=== PATIENT | female | born 1960 | race Caucasian/White ===

== ENCOUNTER → 2020-05-03 | Outpatient (CLI) | payer BC | END | disposition home or self-care (01) | LOC: LABWHC1 13:34 | PROVIDERS: ATTEND Internal Medicine | DX: Z13.9 Encounter for screening, unspecified (principal) | CPT/HCPCS: U0003; C9803 ==

== ENCOUNTER → 2020-06-21 | Outpatient (CLI) | payer BC ==
--- NOTE | 2020-06-21 18:38 | CONS ---
CONSULTATION DATE OF SERVICE: 06/21/2020 This is a 60-year-old lady who has been evaluated in [facility] for possible obstructive sleep apnea-hypopnea syndrome. HISTORY OF PRESENT ILLNESS/SLEEP-WAKE EVALUATION: The patient sleeps by herself. Her usual sleep schedule on working days is from 11 p.m. to 6 or 6:30 a.m., on weekends from midnight until 7 a.m. No problems with falling asleep, although she has a TV in the bedroom. She sleeps in different positions. She snores. She wakes up from sleep 3 times with episodes of nocturia. During the day she may feel sleepy while watching TV, lying down for a rest in the afternoon. [place] Sleepiness Scale is 5. PAST MEDICAL HISTORY: Positive for several episodes of atrial fibrillation starting during sleep. Some of them resolved by themselves, some after treatment with medications. PAST SURGICAL HISTORY: Appendectomy, . MEDICATIONS: Metoprolol. SOCIAL HISTORY: Alcohol consumption occasional. FAMILY HISTORY: Positive for heart problems and stroke. REVIEW OF SYSTEMS: Multiple awakenings from sleep. PHYSICAL EXAMINATION: GENERAL: A pleasant lady without distress. VITAL SIGNS: BP 104/70, HR 86, RR 15, height 5 feet 3-1/2 inches, weight 226.6, body mass index 39.4, temperature 98.0. Oxygen saturation at room air 100%. HEENT: PERRLA, EOMI. Evaluation of oropharynx showed tongue protrudes midline. Low position of soft palate. Mallampati IV. NECK: Supple. No JVD. Thyroid is not palpable. Wide neck; 16 inches in circumference. LUNGS: Clear to percussion and to auscultation. Good air exchange. No wheezing or rhonchi. HEART: S1, S2 regular. No murmurs, gallops or rubs. ABDOMEN: Obese. EXTREMITIES: No clubbing or cyanosis. STATE DIRECTOR: Awake, alert, and oriented X3. Cranial nerves 2 to 7 intact. There is no fasciculation or atrophy. noted. No focal deficits observed. IMPRESSION: 1. Snoring, multiple awakenings from sleep with nocturia, extremely low position of soft palate, wide neck; obstructive sleep apnea-hypopnea syndrome. 2. History of atrial fibrillation. 3. Obesity. 4. Status post . 5. Status post appendectomy. PLAN: 1. Home sleep apnea test for evaluation of patient's breathing during sleep. 2. CPAP/BiPAP titration if sleep study confirms obstructive sleep apnea-hypopnea syndrome. 3. Preferable position during sleep on the side. 4. No driving if patient feels any sleepiness. 5. I will see patient for follow up visit to explain results of testing and following plan. Thank you very much for allowing me to participate in the management of your patient. Sincerely, Kike Horta MD, PhD, FAASM Diplomat of [place] [employer] [place] [employer] [facility] [place] MMODL / IJN: [id number] /
== END | disposition home or self-care (01) ==
LOC: SLEEP 14:49
PROVIDERS: ATTEND Internal Medicine
DX: G47.33 Obstructive sleep apnea (adult) (pediatric) (principal); E66.9 Obesity, unspecified; Z86.79 Personal history of other diseases of the circulatory system; Z90.49 Acquired absence of other specified parts of digestive tract
CPT/HCPCS: 99211

== ENCOUNTER 2020-07-11 08:51 | Day surgery (SDC) | payer BC ==
[2020-07-09 10:50] VITALS: BMI 35.4
[~2020-07-11 08:51] MED LIST: LACTATED RINGERS 1,000 ML IV SCH; ONDANSETRON 4 MG/2 ML VIAL IVP PRN
[2020-07-11 09:19] VITALS: TEMP 97.4
[2020-07-11] MEDS ORDERED: PROPOFOL 10 MG/ML 20 ML VIAL IV ONE (09:57)
--- NOTE | 2020-07-11 10:17 | P.PCN ---
Date of Procedure: 07/11/20 Procedure(s) Performed: BRIEF HISTORY: Patient is a 60-year-old pleasant white female scheduled for an elective colonoscopy as a part of screening for colorectal neoplasia. Her last colonoscopy was 10 years ago. PROCEDURE PERFORMED: Colonoscopy. PREOPERATIVE DIAGNOSIS: Screening for colon cancer. IV sedation per Anesthesia. PROCEDURE: After informed consent was obtained, the patient, was brought into the endoscopy unit. IV sedation was administered by Anesthesia under continuous monitoring. Digital rectal examination was normal. Initially the Olympus CF-160 flexible video colonoscope was then inserted in the rectum, gradually advanced into the cecum without any difficulty. Careful examination was performed as the scope was gradually being withdrawn. Ileocecal valve and the appendiceal orifice were visualized and appeared normal. Prep was excellent. Mucosa of the cecum, ascending colon, transverse colon, descending colon, sigmoid colon, and rectum appeared normal. Scattered sigmoid diverticulosis seen. Retroflexion was performed in the rectum and no lesions were seen. The patient tolerated the procedure well. IMPRESSION: Normal-appearing colon from rectum to cecum with no evidence of colorectal neoplasia. Scattered left sided diverticulosis. RECOMMENDATIONS: Findings of this examination were discussed with the patient as her family.. She was advised to have a repeat screening colonoscopy in 10 years
[2020-07-11 10:43] VITALS: BP 143/81; PULSE 64; RESP 18
== END 2020-07-11 10:59 | disposition home or self-care (01) ==
LOC: ORWHC2ENDO 08:51
PROVIDERS: ATTEND Internal Medicine Gastroenterology
DX: Z12.11 Encounter for screening for malignant neoplasm of colon (principal); K57.30 Diverticulosis of large intestine without perforation or abscess without bleeding; I10 Essential (primary) hypertension; G47.33 Obstructive sleep apnea (adult) (pediatric); F17.200 Nicotine dependence, unspecified, uncomplicated; E66.9 Obesity, unspecified; Z88.0 Allergy status to penicillin; Z88.2 Allergy status to sulfonamides; Z79.899 Other long term (current) drug therapy; Z99.89 Dependence on other enabling machines and devices; Z79.82 Long term (current) use of aspirin; Z98.890 Other specified postprocedural states; Z90.49 Acquired absence of other specified parts of digestive tract; Z68.39 Body mass index [BMI] 39.0-39.9, adult
CPT/HCPCS: J2704; G0121

== ENCOUNTER → 2020-07-16 | Outpatient (CLI) | payer BC | END | disposition home or self-care (01) | LOC: LABWHC1 10:48 | PROVIDERS: ATTEND Internal Medicine | DX: Z03.818 Encounter for observation for suspected exposure to other biological agents ruled out (principal) ==

== ENCOUNTER → 2021-01-09 | Outpatient (CLI) | payer BC ==
--- NOTE | 2021-01-09 11:57 | US ---
EXAMINATION TYPE: US abdomen complete DATE OF EXAM: 01/09/2021 COMPARISON: NONE CLINICAL HISTORY: R10.11 Right upper quadrant pain. Exam limits due to body habitus and bowel gas. EXAM MEASUREMENTS: Liver Length: 13.4 cm Gallbladder Wall: .2 cm CBD: .2 cm Spleen: 10.9 cm Right Kidney: 9.3 x 3.9 x 3.3 cm Left Kidney: 9.9 x 4.9 x 4.8 cm Pancreas: Obscured by bowel gas Liver: Increased attenuation Gallbladder: No stones seen Evidence for sonographic Herbert's sign: No CBD: wnl Spleen: wnl Right Kidney: No hydronephrosis or masses seen Left Kidney: No hydronephrosis or masses seen Upper IVC: wnl Abd Aorta: wnl IMPRESSION: 1. No acute ultrasound abnormality.
== END ==
LOC: RADUSWWP 10:17
PROVIDERS: ATTEND Internal Medicine
DX: R10.11 Right upper quadrant pain (principal)
CPT/HCPCS: 76700

== ENCOUNTER → 2021-07-05 | Outpatient (CLI) | payer BC ==
--- NOTE | 2021-07-08 10:32 | MM ---
Reason for exam: screening (asymptomatic). Last mammogram was performed 5 years and 11 months ago. History: Patient is postmenopausal and had first child at age 36. Physical Findings: A clinical breast exam by your physician is recommended on an annual basis and results should be correlated with mammographic findings. MG 3D Screening Mammo W/Cad Bilateral CC and MLO view(s) were taken. XCCL view(s) were taken of the left breast. Prior study comparison: August 07, 2015, bilateral MG screening mammo w CAD. February 05, 2010, bilateral digital screening mammogram. The breast tissue is heterogeneously dense. This may lower the sensitivity of mammography. Stable benign calcifications. There is no discrete abnormality. No significant changes when compared with prior studies. ASSESSMENT: Benign, BI-RAD 2 RECOMMENDATION: Routine screening mammogram of both breasts in 1 year.
== END | disposition home or self-care (01) ==
LOC: RADMAMWWP 15:28
PROVIDERS: ATTEND Internal Medicine
DX: Z12.31 Encounter for screening mammogram for malignant neoplasm of breast (principal)
CPT/HCPCS: 77063; 77067

== ENCOUNTER → 2021-08-05 | Outpatient (CLI) | payer BC ==
--- NOTE | 2021-08-05 15:37 | US ---
EXAMINATION TYPE: US thyroid st tissue head/neck DATE OF EXAM: 08/05/2021 COMPARISON: NONE CLINICAL HISTORY: E03.8 Hypothyroidism. hypothyroidism GLAND SIZE: Right Lobe: 4.5 x 1.9 x 2.0 cm Overall Parenchyma: heterogenous Left Lobe: 4.3 x 1.7 x 1.6 cm Overall Parenchyma: heterogeneous Isthmus Thickness: 0.4 cm NODULES RIGHT: # of nodules measured on right: 1 1. 0.9 X 0.8 x 1.2 cm, lower , solid, hyperechoic nodule, which is wider than tall, with smooth mar gins, without echogenic foci. Prior size: no prior LEFT: # of nodules measured on left: 0 ISTHMUS: # of nodules measured in the isthmus: 0 Bilateral neck scanned, no evidence of lymphadenopathy. IMPRESSION: Correlate for underlying thyroiditis. 2017 ACR TI-RADS LEVEL: TR 3, follow-up can be performed in one year *Highest TI-RADS level nodule reported
== END | disposition home or self-care (01) ==
LOC: RADUSWWP 14:21
PROVIDERS: ATTEND Internal Medicine
DX: E03.8 Other specified hypothyroidism (principal)
CPT/HCPCS: 76536

== ENCOUNTER → 2022-05-19 | Outpatient (CLI) | payer BC ==
--- NOTE | 2022-05-19 14:51 | CTL ---
EXAMINATION TYPE: CT Low Dose Lung DATE OF EXAM ORDERED: 05/19/2022 HISTORY: 62-year-old female, 30 pack-year history of smoking, quit 3 years ago. Lung cancer screening CT DLP: 115.[address] CTDI: 3.6 mGy Automated exposure control for dose reduction was used. SCREENING VISIT: Baseline COMPARISON: None TECHNIQUE: Low dose computed tomography scan was performed through the chest with coronal and sagitta l reconstructions. CT DIAGNOSTIC QUALITY: Satisfactory FINDINGS: Heart normal size without pericardial effusion. Some mitral annular calcifications are noted. Aorta normal caliber with bovine configuration to the aortic arch. Prominent but nonenlarged 8 mm upper right paratracheal lymph node. No thoracic lymphadenopathy by CT size criteria. 4 mm subpleural pulmonary nodule lateral right upper lobe, axial image 54. 3 mm subpleural pulmonary nodule lateral right upper to midlung, axial image 75 and 85. Mild diffuse bronchial wall thickening. Some strandy atelectasis or scarring in the lungs. No consoli dation or pleural effusion. Small hiatal hernia. Visualized upper abdomen shows no gross abnormality. Bones: Mild degenerative disc disease. More moderate anteriorly at C5-C6 with accentuated kyphosis. IMPRESSION: 1. LungRADS 2, benign; a few pulmonary nodules on the right measuring up to 4 mm on baseline screenin g. 2. Small hiatal hernia. CT LUNG RAD AND CT CHEST RECOMMENDATION: Lung-Rad 2 Benign Appearance or Behavior: Continue annual sc reening with LDCT in 12 months. S Modifier (other clinically significant findings): None
== END | disposition home or self-care (01) ==
LOC: RADCTMAIN 11:59
PROVIDERS: ATTEND Internal Medicine
DX: Z12.2 Encounter for screening for malignant neoplasm of respiratory organs (principal); Z87.891 Personal history of nicotine dependence
CPT/HCPCS: 71271

== ENCOUNTER → 2022-07-09 | Outpatient (CLI) | payer BC ==
--- NOTE | 2022-07-10 11:53 | BD ---
EXAMINATION TYPE: Axial Bone Density DATE OF EXAM: 07/09/2022 COMPARISON: NONE CLINICAL HISTORY: 62 year old Female. ICD-10 CODE: M89.9 DISORDER OF BONE, UNSPECIFIED Height: 65 Weight: 210 FRAX RISK QUESTIONS: Alcohol (3 or more units per day): no Family History (Parent hip fracture): no Glucocorticoids (More than 3mos): no (Ex: prednisone, prednisolone, methylprednisolone, dexamethasone, and hydrocortisone). History of Fracture in Adulthood: no Secondary Osteoporosis: 1. Type 1 Diabetes: no 2. Hyperthyroidism: no 3. Menopause before 45: no 4. Malnutrition: no 5. Chronic liver disease: no Rheumatoid Arthritis: no Current Tobacco Use: no RISK FACTORS HISTORY OF: Surgery to Spine/Hip(right/left)/Wrist (right/left): no Family History of Osteoporosis: no Active: no Diet low in dairy products/other sources of calcium: yes Postmenopausal woman: yes Lost more than 2 inches in height since high school: yes MEDICATIONS: Additional History: EXAM MEASUREMENTS: Bone mineral densitometry was performed using the [employer] System. Bone mineral density as measured about the Lumbar spine is: ----- L1-L4(G/cm2): 1.000 T Score Values are as follows: ----- L1: -0.7 ----- L2: -1.7 ----- L3: -1.6 ----- L4: -2.0 ----- L1-L4: -1.5 Bone mineral density has baseline Bone mineral density about the R hip (g/cm2): 0.733 Bone mineral density about the L hip (g/cm2): 0.880 T Score values are as follows: -----R Neck: -2.2 -----L Neck: -1.1 -----R Total: -1.5 -----L Total: -1.1 Bone mineral density baseline FRAX%s: The graph provided illustrates a 10.4% chance for a major osteoporotic fx and a 1.6% chance f or the hips probability for fx in 10 years time. IMPRESSION: Osteopenia (T Score between -2.5 and -1). There is slightly increased risk of fracture and the patient may be considered for treatment. Re-Screen 2-5 years. NOTE: T-SCORE=SD OF THE YOUNG ADULT MEAN.
--- NOTE | 2022-07-10 14:02 | MM ---
Reason for Exam: Screening (asymptomatic). Last screening mammogram was performed 12 month(s) ago. Patient History: Menarche at age 13. First Full-Term at age 36. Late child-bearing (after 30). Postmenopausal. Risk Values: Akiko 5 year model risk: 2.0%. NCI Lifetime model risk: 8.4%. Prior Study Comparison: 02/05/2010 Bilateral Screening Mammogram, [facility]. 08/07/2015 Bilateral Screening Mammogram, [facility]. 07/05/2021 Bilateral Screening Mammogram, [facility]. Tissue Density: The breast tissue is heterogeneously dense. This may lower the sensitivity of mammography. Findings: Analyzed By CAD. Stable tiny well-defined round mass in the left breast medial aspect. There is no suspicious group of microcalcifications or new suspicious mass in either breast. Overall Assessment: Benign, BI-RAD 2 Management: Screening Mammogram of both breasts in 1 year. A clinical breast exam by your physician is recommended on an annual basis and results should be correlated with mammographic findings. Electronically signed and approved by: Eran Tinsley M.D.
== END | disposition home or self-care (01) ==
LOC: RADMAMWWP 15:57
PROVIDERS: ATTEND Internal Medicine
DX: Z12.31 Encounter for screening mammogram for malignant neoplasm of breast (principal); M89.9 Disorder of bone, unspecified
CPT/HCPCS: 77063; 77067; 77080

== ENCOUNTER → 2023-10-29 | Outpatient (CLI) | payer BC ==
--- NOTE | 2023-10-30 19:11 | MM ---
Reason for Exam: Screening (asymptomatic). Last mammogram was performed 1 year(s) and 4 month(s) ago. Patient History: Menarche at age 13. First Full-Term at age 36. Late child-bearing (after 30). Postmenopausal. Patient has history of breast feeding. Risk Values: Akiko 5 year model risk: 2.0%. NCI Lifetime model risk: 8.1%. Prior Study Comparison: 08/07/2015 Bilateral Screening Mammogram, [facility]. 07/05/2021 Bilateral Screening Mammogram, [facility]. 07/09/2022 Bilateral MG 3D screening mammo w/cad, [facility]. Tissue Density: There are scattered fibroglandular densities. Findings: Analyzed By CAD. Pattern appears symmetrical and stable. There is a nodular density within the inferior medial left breast middle position. This has enlarged from comparison previous examination dated millimeters currently measuring 5 mm. 5 cm nipple. Additional workup with ultrasound is recommended. Right Breast: No suspicious groups of microcalcifications, spiculated or lobular masses, architectural distortion or other secondary signs of malignancy are mammographically apparent. Overall Assessment: Incomplete: need additional imaging evaluation, BI-RAD 0 Management: Diagnostic Breast Ultrasound of the left breast. A negative mammogram report should not preclude additional follow up of suspicious palpable abnormalities. Patient should continue monthly self breast exam. A clinical breast exam by your physician is recommended on an annual basis and results should be correlated with mammographic findings. Electronically signed and approved by: Mingo Zamora D.O. Radiologis
== END | disposition home or self-care (01) ==
LOC: RADMAMWWP 11:14
PROVIDERS: ATTEND Family Medicine
DX: Z12.31 Encounter for screening mammogram for malignant neoplasm of breast (principal); Z78.0 Asymptomatic menopausal state
CPT/HCPCS: 77063; 77067

== ENCOUNTER → 2023-11-05 | Outpatient (CLI) | payer BC ==
--- NOTE | 2023-11-05 15:18 | USB ---
Reason for Exam: Additional evaluation requested from abnormal screening. Patient History: Menarche at age 13. First Full-Term at age 36. Late child-bearing (after 30). Postmenopausal. Patient has history of breast feeding. Risk Values: Akiko 5 year model risk: 2.0%. NCI Lifetime model risk: 8.1%. Technique: Method: Targeted. Prior Study Comparison: 07/05/2021 Bilateral Screening Mammogram, [facility]. 07/09/2022 Bilateral MG 3D screening mammo w/cad, [facility]. 10/29/2023 Bilateral MG 3D screening mammo w/cad, [facility]. Findings: The lower inner quadrant of the left breast, the axilla of the left breast and the retroareolar of the left breast were scanned. There is a 0.5 x 0.4 x 0.4 cm rounded hypoechoic area with indistinct margins 9:00 position 5 cm from the nipple. This could correlate with the mammographic finding and is considered suspicious. Ultrasound-guided core biopsy is recommended. Overall Assessment: Suspicious, BI-RAD 4 Management: Ultrasound Core Biopsy of the left breast. A clinical breast exam by your physician is recommended on an annual basis and results should be correlated with mammographic findings. This exam should not preclude additional follow-up of suspicious palpable abnormalities. Results were given to the patient verbally at the time of exam. Electronically signed and approved by: Mingo Zamora D.O. Radiologis
== END | disposition home or self-care (01) ==
LOC: RADUSWWP 14:38
PROVIDERS: ATTEND Family Medicine
DX: R92.8 Other abnormal and inconclusive findings on diagnostic imaging of breast (principal); Z78.0 Asymptomatic menopausal state

== ENCOUNTER → 2023-11-25 | Day surgery (SDC) | payer BC ==
--- NOTE | 2023-12-01 07:39 | MM ---
Reason for Exam: Post Procedure Mammogram. Last screening mammogram was performed less than 1 month ago. Patient History: Menarche at age 13. First Full-Term at age 36. Late child-bearing (after 30). Postmenopausal. Patient has history of breast feeding. Risk Values: Akiko 5 year model risk: 2.0%. NCI Lifetime model risk: 8.1%. Prior Study Comparison: 07/05/2021 Bilateral Screening Mammogram, [facility]. 07/09/2022 Bilateral MG 3D screening mammo w/cad, [facility]. 10/29/2023 Bilateral MG 3D screening mammo w/cad, [facility]. 11/05/2023 Left US breast workup limited , [facility]. Tissue Density: Left: There are scattered fibroglandular densities. Pathology Description: Location: 9 o'clock. Needle Type: Celero Cores: 3 Gauge: 12 The procedure of ultrasound guided core biopsy was explained to the patient. Benefits, alternatives, and risks were discussed. An informed consent was then obtained. The patient was placed in supine positioning for imaging and for the procedure. The overlying skin was prepped and draped in usual sterile fashion. Lidocaine buffered with bicarbonate was used as anesthetic into the skin and subcutaneous tissue up to area of concern in the left 9:00 breast. A marielena was made with surgical scalpel. Under ultrasound guidance, a 12-gauge vacuum assisted biopsy gun device was used to obtain 3 core samples. Following this, a biopsy clip was left in lesion. The patient tolerated the procedure well without any immediate complication. The patient was kept in the radiology department for short stay after the procedure and then discharged home in stable condition. Postprocedure mammogram: The patient was transferred to mammography for physician ordered post procedure mammogram for clip placement verification. Impression: Successful, uncomplicated ultrasound guided core biopsy of area of concern in the left 9:00 breast, full pathology results to follow. Pathology Results: Result: Malignant, Invasive ductal carcinoma. LEFT BREAST, NINE O'CLOCK, ULTRASOUND GUIDED NEEDLE CORE BIOPSY: Invasive ductal carcinoma, Grade 1 (see Surgical Pathology Cancer Case Summary and Comment). Overall Assessment: Malignant Assessment: MG diagnostic mammo LT wo CAD. - Left: Known biopsy proven malignancy, BI-RAD 6. Management: Surgical Consultation of the left breast. Electronically signed and approved by: Cristofer Johnson M.D. Radiologis
== END ==
LOC: RADUSWWP 10:14
PROVIDERS: ATTEND Surgery
DX: C50.912 Malignant neoplasm of unspecified site of left female breast (principal); Z17.0 Estrogen receptor positive status [ER+]
CPT/HCPCS: 88305; 88342; 88341; 77065; 19083; A4648

== ENCOUNTER → 2023-12-04 | Outpatient (CLI) | payer BC ==
--- NOTE | 2023-12-04 10:59 | P.GSHP ---
History of Present Illness H&P Date: 12/04/23 Chief Complaint: left breast stage I invasive ductal cancer 11-25-23 Marilynn is a 63 year old female seen in consultation for Dr. Pina regarding a biopsy proven left breast invasive ductal cancer. She had a bilateral mammogram on 10-29-23 showing an inferior medial left breast lesion. It measured 5 mm. Right breast no lesions of concern, ultrasound recommended. Ultrasound 11-05-23 0.5 by 0.4 cm lesion noted. Biopsy on (+) for invasive ductal cancer, ER+< MN+Her2-G1. Insulin was The patient did not feel any new lumps masses or nodules of concern in her breast prior to the mammogram. She has not had any surgery on her breast. She is not complaining of any trauma or infection in her breast. She is not complaining of any nipple discharge or skin changes. She does get routine mammograms. Her last mammogram prior to this was a year ago. Caffeine: 44 oz diet pepsi/day nicotine: none; stopped 8 years ago used to smoke 1 PPD for about 30 years chocolate: occasional BCP: used for 20 years Family History: paternal grandmother: gallbladder cancer Hormonal History: menarche: 12 , age at first : 36, breast fed: yes menopause: 44 Surgical History: appendectomy Medical History: hypothyroid Social History: nicotine: as above alcohol: several times/week drugs: none - Constitutional Constitutional: Denies chills, Denies fever - EENT Eyes: denies blurred vision, denies pain Ears: deny: decreased hearing, tinnitus Ears, nose, mouth and throat: Denies headache, Denies sore throat - Breasts Breasts: bilateral: as per HPI - Cardiovascular Cardiovascular: Denies chest pain, Denies shortness of breath - Respiratory Respiratory: Denies cough, Denies 7 - Gastrointestinal Gastrointestinal: Denies abdominal pain, Denies diarrhea, Denies nausea, Denies vomiting - Genitourinary (Female) Genitourinary: Denies dysuria, Denies hematuria - Menstruation Menstruation: Reports postmenopausal - Musculoskeletal Musculoskeletal: Reports myalgias - Integumentary Integumentary: Denies pruritus, Denies rash - Neurological Neurological: Denies numbness, Denies weakness - Psychiatric Psychiatric: Reports anxiety - Endocrine Endocrine: Reports as per HPI - Hematologic/Lymphatic Comment: baby aspirin - Allergic/Immunologic Allergic/Immunologic: Reports as per HPI Past Medical History Past Medical History: No Reported History History of Any Multi-Drug Resistant Organisms: None Reported Past Surgical History: Appendectomy, Section Past Anesthesia/Blood Transfusion Reactions: No Reported Reaction Past Psychological History: No Psychological Hx Reported - Past Family History Father Family Medical History: No Reported History Mother Family Medical History: Coronary Artery Disease (CAD), Pulmonary Embolus Brother(s) Family Medical History: AFIB Medications and Allergies Home Medications Medication Instructions Recorded Confirmed Type Aspirin 81 mg PO DAILY #90 chewable 08/10/16 11/09/23 Rx Cholecalciferol [Vitamin D3 (25 25 mcg PO DAILY 11/09/23 11/09/23 History Mcg = 1000 Iu)] Levothyroxine Sodium [Synthroid] 100 mcg PO DAILY 11/09/23 11/09/23 History Allergies Allergy/AdvReac Type Severity Reaction Status Date / Time Penicillins Allergy Rash/Hives Verified 11/09/23 08:44 Sulfa (Sulfonamide AdvReac Rash/Hives Verified 11/09/23 08:44 Antibiotics) Surgical - Exam - General no distress - Eyes normal ocular movement - Neck trachea midline - Respiratory normal respiratory effort, clear to auscultation - Cardiovascular Rhythm: regular Heart Sounds: normal: S1, S2 - Abdomen Abdomen: soft, non tender, no guarding, no rigid, no rebound - Integumentary normal turgor - Neurologic no disoriented, no combative - Musculoskeletal normal gait - Psychiatric oriented to time, oriented to person, oriented to place, speech is normal, memory intact Breast Exam: BRA: 38B Inspection: Bilateral grade 3 ptosis, ecchymosis at biopsy site left breast Palpation: Right breast: Multi positional exam fibrocystic changes, no dominant masses or nodules of concern Right axilla: No adenopathy of concern Left breast: Multi positional exam fibrocystic changes, no dominant masses or nodules of concern, ecchymosis at biopsy site, no infection and no hematoma Left axilla: No adenopathy of concern Results Mammogram and ultrasound personally reviewed with Dr. Arellano Assessment and Plan Assessment: Impression: Biopsy-proven left breast invasive ductal carcinoma stage Ia Plan: Presentation of case at tumor board CC: Dr. Pina
[2023-12-04 11:05] VITALS: BP 111/74; PULSE 69; RESP 16; TEMP 97.9
== END ==
LOC: WWCWWP 10:04
PROVIDERS: ATTEND Surgery
DX: C50.912 Malignant neoplasm of unspecified site of left female breast (principal); E03.9 Hypothyroidism, unspecified; Z17.0 Estrogen receptor positive status [ER+]; Z87.891 Personal history of nicotine dependence; Z79.890 Hormone replacement therapy; Z88.0 Allergy status to penicillin; Z88.2 Allergy status to sulfonamides; Z79.82 Long term (current) use of aspirin

== ENCOUNTER → 2023-12-18 | Outpatient (CLI) | payer BC ==
--- NOTE | 2023-12-18 12:29 | CTL ---
EXAMINATION TYPE: CT Low Dose Lung DATE OF EXAM ORDERED: 12/18/2023 HISTORY. Lung cancer screening CT DLP: 74.[address] CTDI: 2.45 mGy Automated exposure control for dose reduction was used. COMPARISON: 05/19/2022 TECHNIQUE: Low dose computed tomography scan was performed through the chest at 1 mm thick sections a nd reconstructed images in multiple planes at 1 mm and [address] DIAGNOSTIC QUALITY: Satisfactory FINDINGS: There are stable tiny sub-4 mm nodules bilaterally. No new or suspicious lung nodule is seen. There is no abnormal airspace/consolidative density or abnormal interstitial density. There is no pleural effusion, pleural thickening or pneumothorax. Great vessels chest normal is no mediastinal, hilar or axillary adenopathy. There is case of the upper abdomen reveals no gross abnormality. No focal osseous lesions are seen. IMPRESSION: 1. No cystic significant interval change compared to previous. 2 BI-RADS Category 2 benign findings. Continue routine screening U. Br[facility]. 3. No acute cardiopulmonary disease. 4. No evidence of chronic lung disease.
== END | disposition home or self-care (01) ==
LOC: RADCTMAIN 11:02
PROVIDERS: ATTEND Family Medicine
DX: Z12.2 Encounter for screening for malignant neoplasm of respiratory organs (principal); Z87.891 Personal history of nicotine dependence
CPT/HCPCS: 71271

== ENCOUNTER → 2024-09-15 | Outpatient (CLI) | payer MEDICARE, BC ==
--- NOTE | 2024-09-15 20:58 | BD ---
EXAMINATION TYPE: Axial Bone Density DATE OF EXAM: 09/15/2024 CLINICAL HISTORY: 64 years old Female. ICD-10 CODE: C50.212 BREAST CA , Additional History: Height: 63.25 Weight: 236 FRAX RISK QUESTIONS: Secondary Osteoporosis: RISK FACTORS HISTORY OF: MEDICATIONS: Thyroid Medications: Which medication: Levothyroxine How Long: about 5 years Osteoporosis Medications: Which medication: Alendronate How Lon months EXAM MEASUREMENTS: Bone mineral densitometry was performed using the [employer] System. Bone mineral density as measured about the Lumbar spine is: ----- L1-L4(G/cm2): 0.989 T Score Values are as follows: ----- L1: -1.5 ----- L2: -1.7 ----- L3: -1.5 ----- L4: -1.8 ----- L1-L4: -1.6 Z Score Values are as follows: ----- L1: -1.1 ----- L2: -1.3 ----- L3: -1.0 ----- L4: -1.4 ----- L1-L4: -1.2 Bone mineral density has: Decreased -1.1% since study of: 07-09-22 Bone mineral density about the R hip (g/cm2): 0.804 Bone mineral density about the L hip (g/cm2): 0.863 T Score values are as follows: -----R Neck: -2.2 -----L Neck: -1.0 -----R Total: -1.6 -----L Total: -1.1 Z Score values are as follows: -----R Neck: -1.4 -----L Neck: -0.3 -----R Total: -1.2 -----L Total: -0.8 Bone mineral density has: Decreased -1.0% since study of: 07-09-22 FRAX%s: The graph provided illustrates a 10.1% chance for a major osteoporotic fx and a 1.6% chance f or the hips probability for fx in 10 years time. IMPRESSION: Osteopenia (T Score between -2.5 and -1). There is slightly increased risk of fracture and the patient may be considered for treatment. Re-Screen 2-5 years. NOTE: T-SCORE=SD OF THE YOUNG ADULT MEAN. [facility], , 09/15/2024 8:56 PM
== END | disposition home or self-care (01) ==
LOC: RADBDWWP 14:28
PROVIDERS: ATTEND Internal Medicine
DX: C50.212 Malignant neoplasm of upper-inner quadrant of left female breast (principal); E06.9 Thyroiditis, unspecified; I48.91 Unspecified atrial fibrillation; M85.89 Other specified disorders of bone density and structure, multiple sites
CPT/HCPCS: 77080

== ENCOUNTER → 2024-10-06 | Outpatient (CLI) | payer MEDICARE, BC ==
--- NOTE | 2024-10-07 08:28 | MM ---
Reason for Exam: Follow-up at short interval from prior study. Last screening mammogram was performed 11 month(s) ago. Patient History: Menarche at age 13. First Full-Term at age 36. Late child-bearing (after 30). Postmenopausal. Patient has history of breast feeding. Breast cancer, left, age 63. 11/25/2023, Malignant US biopsy breast VAD LT on the left side. Prior Study Comparison: 07/05/2021 Bilateral Screening Mammogram, [facility]. 07/09/2022 Bilateral MG 3D screening mammo w/cad, [facility]. 10/29/2023 Bilateral MG 3D screening mammo w/cad, [facility]. 11/05/2023 Left US breast workup limited LT, [facility]. 11/25/2023 Left MG diagnostic mammo LT wo CAD., [facility]. Tissue Density: The breasts are heterogeneously dense, which may obscure small masses. Findings: Analyzed By CAD. A scar marker is utilized on the left breast. The pattern is symmetrical. There is a wire loop with twist fixation anterior medial left breast. No suspicious changes. No suspicious groups of microcalcifications, spiculated or lobular masses, architectural distortion or other secondary signs of malignancy are mammographically apparent. Overall Assessment: Benign, BI-RAD 2 Management: Screening Mammogram of both breasts in 1 year. A negative mammogram report should not preclude additional follow up of suspicious palpable abnormalities. Patient should continue monthly self breast exam. A clinical breast exam by your physician is recommended on an annual basis and results should be correlated with mammographic findings. Note on Akiko scores and lifetime risk: 1. A Akiko score greater than 3% is considered moderate risk. If this is the case, consider specialist referral to assess eligibility for a risk reducing agent. 2. If overall lifetime risk for the development of breast cancer is 20% or higher, the patient may qualify for future screening with alternating mammogram and breast MRI. [facility], , 10/07/2024 8:24 AM. Electronically signed and approved by: Mingo Zamora D.O. Radiologis
== END | disposition home or self-care (01) ==
LOC: RADMAMWWP 13:47
PROVIDERS: ATTEND Surgery
DX: Z85.3 Personal history of malignant neoplasm of breast (principal); Z78.0 Asymptomatic menopausal state; R92.333 Mammographic heterogeneous density, bilateral breasts
CPT/HCPCS: 77066; G0279; 77062

== ENCOUNTER → 2024-11-14 | Outpatient (CLI) | payer MEDICARE, BC ==
[2024-11-14 20:09] LABS: HCT 42.4 % (37.2-46.3); MCH 29.9 pg (27.0-32.0); MCV 90.6 FL (80.0-97.0); RBC 4.68 X 10*6/uL (4.10-5.20); WBC 6.98 X 10*3/uL (4.50-10.00)
[2024-11-14 20:10] LABS: Mean Platelet Volume 10.7 FL (9.5-12.2); NRBC Per 100 WBC 0 X 10*3/uL (0.00-0.01); Platelet Count 199 X 10*3/uL (140-440); RDW 12.4 % (11.5-14.5)
[2024-11-14 20:32] LABS: BUN/Creat Ratio 16.82 Ratio (12.00-20.00); Blood Urea Nitrogen 18.5 mg/dL (9.0-27.0); Calcium 9.4 mg/dL (8.7-10.3); Carbon Dioxide 23.2 mmol/L (21.6-31.8); Chloride 103 mmol/L (96-109); Glucose 90 mg/dL (70-110); Potassium 4.2 mmol/L (3.5-5.5); Sodium 139 mmol/L (135-145)
[2024-11-14 20:43] LABS: NT-Pro-B-Type Natriuretic Pept 107 pg/mL (0-125)
== END | disposition home or self-care (01) ==
LOC: LABWHC1 15:31
PROVIDERS: ATTEND Internal Medicine Cardiovascular Disease
DX: R06.02 Shortness of breath (principal)
CPT/HCPCS: 36415; 80048; 83880; 84443; 85027

== ENCOUNTER → 2025-01-31 | Outpatient (CLI) | payer MEDICARE, BC ==
--- NOTE | 2025-01-31 11:24 | CTL ---
EXAMINATION TYPE: CT Low Dose Lung DATE OF EXAM ORDERED: 01/31/2025 COMPARISON: Prior CT December 18, 2023 and older studies CLINICAL INDICATION: Female, 64 years old with history of Z12.2 SCREENING Z87.891 FORMER SMOKER; [facility], Screening for lung cancer, Former smoker, Lung cancer screening, History of Smoking/tobacco use. TECHNIQUE: Low dose computed tomography scan was performed through the chest at 1 mm thick sections a nd reconstructed images in multiple planes at 1 mm and [address] DLP: [address] CTDI: 2.49 mGy Automated exposure control for dose reduction was used. CT DIAGNOSTIC QUALITY: Limited, but interpretable Due to body habitus FINDINGS: Nodules: A few scattered tiny nodules bilaterally are redemonstrated. No new or enlarging greater rosario n 4 mm pulmonary nodules. LUNGS: COPD: Severity: None Fibrosis: Severity: None Lymph nodes: None Other findings: None RIGHT PLEURAL SPACE: Effusion: None Calcification: None Thickening: None Pneumothorax: None LEFT PLEURAL SPACE: Effusion: None Calcification: None Thickening: None Pneumothorax: None HEART: Heart Size: Normal Coronary Calcification: Mild Pericardial Effusion: None Calcification at the mitral valve redemonstrated. OTHER FINDINGS: Upper abdomen: None Bony thorax: Exaggerated kyphosis with multilevel spurring is redemonstrated Supraclavicular region: None Other: None IMPRESSION: Stable scattered tiny bilateral nodules. CT LUNG RAD AND CT CHEST RECOMMENDATION: Lung-Rad 2 Benign Appearance or Behavior: Continue annual sc reening with LDCT in 12 months. S Modifier (other clinically significant findings): None [facility], , 01/31/2025 11:22 AM
== END | disposition home or self-care (01) ==
LOC: RADCTMAIN 10:40
PROVIDERS: ATTEND Family Medicine
DX: Z12.2 Encounter for screening for malignant neoplasm of respiratory organs (principal); R91.8 Other nonspecific abnormal finding of lung field; Z87.891 Personal history of nicotine dependence
CPT/HCPCS: 71271